=== PATIENT | female | born 1955 | race Caucasian/White ===

== ENCOUNTER → 2017-04-26 | Outpatient (CLI) | payer BC ==
--- NOTE | 2017-04-27 14:07 | MM ---
Reason for exam: screening (asymptomatic). Last mammogram was performed 1 year ago. History: Patient is postmenopausal, history of other cancer, and is nulliparous. Took hormonal contraceptives for 5 years beginning at age 22. Physical Findings: A clinical breast exam by your physician is recommended on an annual basis and results should be correlated with mammographic findings. MG Screening Mammo w CAD Bilateral CC and MLO view(s) were taken. Prior study comparison: April 22, 2016, bilateral MG screening mammo w CAD. April 16, 2015, bilateral MG screening mammo w CAD. The breast tissue is extremely dense which could obscure a lesion on mammography. Finding: There is an intermediate concern, suspicious equal density (isodense), spiculated irregular mass located 7 cm from the nipple in the upper quadrant, middle position of the left breast seen on MLO view. New finding since April 22, 2016 and April 16, 2015. ASSESSMENT: Incomplete: need additional imaging evaluation, BI-RAD 0 RECOMMENDATION: Special view mammogram of the left breast. If lesion persists on supplemental views, image directed ultrasound is recommended. [facility] will attempt to contact patient to return for supplemental views and ultrasound if indicated.
== END | disposition home or self-care (01) ==
LOC: RADMAMWWP 08:42
PROVIDERS: ATTEND Obstetrics & Gynecology
DX: Z12.31 Encounter for screening mammogram for malignant neoplasm of breast (principal)

== ENCOUNTER 2022-04-12 09:29 | Day surgery (SDC) | payer BC, MEDICARE ==
[2022-04-11 09:21] VITALS: BMI 21.2
[~2022-04-12 09:29] MED LIST: LACTATED RINGERS 1,000 ML IV SCH; LIDOCAINE 1% (10MG/ML) FOR IV START INTRADERMA PRN
[2022-04-12] MEDS ORDERED: LACTATED RINGERS 1,000 ML IV ONE (11:15)
[2022-04-12 11:19] VITALS: TEMP 97.3
[2022-04-12] MEDS ORDERED: PROPOFOL 10 MG/ML 20 ML VIAL IV ONE (11:54)
--- NOTE | 2022-04-12 12:10 | P.PCN ---
Date of Procedure: 04/12/22 Procedure(s) Performed: BRIEF HISTORY: Patient is a 66-year-old pleasant 8 female scheduled for an elective colonoscopy as a part of screening for colorectal neoplasia. PROCEDURE PERFORMED: Colonoscopy. PREOPERATIVE DIAGNOSIS: Screening for colon cancer. IV sedation per Anesthesia. PROCEDURE: After informed consent was obtained, the patient, was brought into the endoscopy unit. IV sedation was administered by Anesthesia under continuous monitoring. Digital rectal examination was normal. Initially the Olympus CF-160 flexible video colonoscope was then inserted in the rectum, gradually advanced into the cecum without any difficulty. Careful examination was performed as the scope was gradually being withdrawn. Ileocecal valve and the appendiceal orifice were visualized and appeared normal. Prep was excellent. Mucosa of the cecum, ascending colon, transverse colon, descending colon, sigmoid colon, and rectum appeared normal. Retroflexion was performed in the rectum and no lesions were seen. The patient tolerated the procedure well. IMPRESSION: Normal-appearing colon from rectum to cecum no evidence of colorectal neoplasia. RECOMMENDATIONS: Findings of this examination were discussed with the patient as well as her family. She was advised to have a repeat screening colonoscopy i n 10 years.
[2022-04-12 12:59] VITALS: BP 120/68; PULSE 54; RESP 18
== END 2022-04-12 13:20 ==
LOC: ORWHC2ENDO 09:29
PROVIDERS: ATTEND Internal Medicine Gastroenterology
DX: Z12.11 Encounter for screening for malignant neoplasm of colon (principal)
CPT/HCPCS: J2704; G0121

== ENCOUNTER → 2022-11-21 | Outpatient (CLI) | payer MEDICARE ==
--- NOTE | 2022-11-21 16:36 | US ---
EXAMINATION TYPE: US kidneys/renal and bladder DATE OF EXAM: 11/21/2022 COMPARISON: NONE CLINICAL INDICATION: Female, 66 years old with history of N18.2 CHR KIDNEY DISEASE; CKD EXAM MEASUREMENTS: Right Kidney: 10.2 x 4.5 x 4.4 cm Left Kidney: 9.8 x 4.7 x 4.8 cm Multiple grayscale ultrasound images of the kidneys were obtained with additional multiple grayscale and color Doppler ultrasound images of the urinary bladder. Right Kidney: No evidence of hydro, possible calculus lower pole= 0.5 cm Left Kidney: No evidence of hydro Bladder: wnl Bilateral Jets seen: Yes There is no evidence for hydronephrosis at this point in time. Corticomedullary junction is maintaine d bilaterally. There is an echogenic nonshadowing 0.5 cm focus within the lower pole the right kidney . The urinary bladder is anechoic. Bilateral ureteral jets are seen. IMPRESSION: 1. No hydronephrosis. 2. Nonshadowing 0.5 cm right lower pole focus which may represent a nonobstructive calculus versus ot her etiologies such as an angiomyolipoma. This can be further evaluated with CT abdomen without IV c ontrast as clinically indicated.
== END | disposition home or self-care (01) ==
LOC: RADUSWWP 15:44
PROVIDERS: ATTEND Internal Medicine
DX: N18.2 Chronic kidney disease, stage 2 (mild) (principal)
CPT/HCPCS: 76770

== ENCOUNTER → 2023-01-11 | Outpatient (CLI) | payer MEDICARE ==
--- NOTE | 2023-01-11 20:45 | CT ---
EXAMINATION TYPE: CT abdomen wo con DATE OF EXAM: 01/11/2023 COMPARISON: Ultrasound 11/21/2022 INDICATION: Chronic kidney disease, stage 2 DLP: 169.6 mGycm, Automated exposure control for dose reduction was used. CONTRAST: 0 mL of Isovue 300. Study performed with Oral Contrast TECHNIQUE: Axial images were obtained from above the diaphragm to the pubic rami in the axial plane a t 5 mm thick sections. Reconstructed images are reviewed on the computer in the coronal plane. FINDINGS: Limited CT sections are obtained the lung bases. The lung bases are clear. CT ABDOMEN: Liver: Normal Spleen: Normal Pancreas: Normal Adrenal glands: The adrenal glands are normal. Gallbladder: Normal Kidneys: No masses are evident. Very faint hypodensity may be in the inferior renal cortex. Underlyin g length may be present No calcifications identified to correlate with the ultrasound findings. No hy dronephrosis is present. No cysts are present. There is an extrarenal pelvis on the right. Aorta: Normal Inferior vena cava: Normal. Loops of bowel distended with oral contrast. Unremarkable. Some Bowel loops lack oral contrast limiti ng their evaluation. IMPRESSIONS: 1. No renal calculi to correlate with the ultrasound findings. Angiomyolipoma more likely within the differential. Monitoring with ultrasound is recommended
== END | disposition home or self-care (01) ==
LOC: RADCTMAIN 10:03
PROVIDERS: ATTEND Internal Medicine
DX: N18.2 Chronic kidney disease, stage 2 (mild) (principal)
CPT/HCPCS: 74150

== ENCOUNTER → 2023-12-08 | Outpatient (CLI) | payer MEDICARE ==
--- NOTE | 2023-12-08 19:14 | US ---
EXAMINATION TYPE: US kidneys/renal and bladder DATE OF EXAM: 12/08/2023 COMPARISON: Ultrasound kidneys/renal and bladder 1223, CT abdomen 01/11/2023 CLINICAL INDICATION: Female, 68 years old with history of R79.9 ABNORMAL BLOOD CHEMISTRY; CKD EXAM MEASUREMENTS: Right Kidney: 9.8 x 4.2 x 3.7 cm Left Kidney: 10.1 x 4.9 x 4.5 cm Right Kidney: dilated renal pelvis. Echogenic focus lower pole = 0.8cm ( as on prior exam ) Left Kidney: no evidence of hydronephrosis Bladder: wnl Bilateral Jets seen: yes There is no evidence for hydronephrosis at this point in time. Prominent right extrarenal pelvis zoei esponding to CT. No shadowing calculi identified. Similar echogenic focus within the lower pole of th e right kidney measuring up to 0.8 cm. Cortical medullary differentiation is maintained bilaterally. No masses are identified. The urinary bladder is anechoic. Bilateral ureteral jets are seen. IMPRESSION: 1. Stable nonshadowing echogenic focus within the lower pole of the right kidney when compared to pr ior ultrasound and CT. Favored to represent an angiomyolipoma due to lack of calculus visualized on p rior CT. 2. No hydronephrosis.
== END | disposition home or self-care (01) ==
LOC: RADUSWWP 14:06
PROVIDERS: ATTEND Internal Medicine
DX: R79.9 Abnormal finding of blood chemistry, unspecified (principal)
CPT/HCPCS: 76770

== ENCOUNTER → 2024-04-09 | Outpatient (CLI) | payer MEDICARE ==
[2024-04-09] MEDS: DENOSUMAB 60 MG/ML 1 ML SYRINGE SQ NR (13:45)
[2024-04-09 13:50] VITALS: BP 103/68; PULSE 60; RESP 16; TEMP 97.4
== END ==
LOC: PROCWHC3 13:31
PROVIDERS: ATTEND Internal Medicine
DX: M81.6 Localized osteoporosis [Lequesne] (principal)
CPT/HCPCS: 96372; J0897

== ENCOUNTER → 2024-12-11 | Outpatient (CLI) | payer MEDICARE ==
[2024-12-11 14:17] VITALS: BP 106/70; PULSE 67; RESP 16; TEMP 97.4
[2024-12-11] MEDS: DENOSUMAB 60 MG/ML 1 ML SYRINGE SQ NR (14:17)
== END ==
LOC: PROCWHC3 13:55
DX: M81.6 Localized osteoporosis [Lequesne] (principal)
CPT/HCPCS: 96372; J0897